=== PATIENT | male | born 1995 | race Caucasian/White ===

== ENCOUNTER 2018-12-07 22:30 | Emergency (ER) | payer OTHER ==
[~2018-12-07] VITALS: Ht 167.6 cm; Wt 72.7 kg
[2018-12-07] MEDS ORDERED: diphenhydrAMINE INJ 50MG/ML VIAL (J1200) IV STA (23:19)
[2018-12-07] MEDS ORDERED: methylPREDNISolone INJ 125 MG/2 ML VIAL (J2930) IV ONE (23:30)
[2018-12-07] MEDS ORDERED: FAMOTIDINE INJ 20MG/2ML VIAL (S0028) IVP ONE (23:30)
[2018-12-08 01:32] VITALS: BP 131/70
== END 2018-12-08 01:35 | disposition home or self-care (01) ==
LOC: EDBD 22:30 → M ED 22:30
DX: S60.460A Insect bite (nonvenomous) of right index finger, initial encounter (principal); W57.XXXA Bitten or stung by nonvenomous insect and other nonvenomous arthropods, initial encounter; Y92.89 Other specified places as the place of occurrence of the external cause
CPT/HCPCS: 96374; 96375; 99284; J1200; J2930